=== PATIENT | male | born 1955 | race Caucasian/White ===

== ENCOUNTER 2016-04-26 19:17 | Inpatient (IN) | payer OTHER ==
--- NOTE | ~2016-04-26 | EKG ---
PATIENT: KIET ANDREW UNIT #: [id number] Ventricular Rate: 100 BPM Atrial Rate: 100 BPM P-R Interval: 150 ms QRS Duration: 114 ms Q-T Interval: 350 ms QTC Calculation(Bezet): 451 ms P [place]: 47 degrees Calculated T Hunter: 131 degrees Diagnosis Line: Normal sinus rhythm Diagnosis Line: Left ventricular hypertrophy with repolarization Diagnosis Line: abnormality Diagnosis Line: Abnormal ECG Diagnosis Line: When compared with ECG of 27-APR-2016 07:15, Diagnosis Line: ST no longer elevated in Anterior leads Diagnosis Line: Nonspecific T wave abnormality no longer evident Diagnosis Line: in Inferior leads Diagnosis Line: T wave inversion now evident in Anterior leads Diagnosis Line: Confirmed by FESTUS SALGADO MD ([id number]) on 04/30/2016 Diagnosis Line: 6:15:57 PM INTERPRETING MD: NAOMI MCKEON
--- NOTE | ~2016-04-26 | EKG ---
PATIENT: KIET ANDREW UNIT #: [id number] Ventricular Rate: 102 BPM Atrial Rate: 102 BPM P-R Interval: 130 ms QRS Duration: 98 ms Q-T Interval: 352 ms QTC Calculation(Bezet): 458 ms P [place]: 53 degrees Calculated R [place]: 35 degrees Calculated T [place]: -110 degrees Diagnosis Line: Sinus tachycardia Diagnosis Line: Left ventricular hypertrophy with repolarization Diagnosis Line: abnormality Diagnosis Line: Abnormal ECG Diagnosis Line: No previous ECGs available Diagnosis Line: Confirmed by SHAWN REED MD ([id number]) on Diagnosis Line: 04/27/2016 5:16:32 PM INTERPRETING MD: RADHA
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
--- NOTE | ~2016-04-26 | US77 ---
[facility] A Service of [facility] RADIOLOGY TEXT RESULTS PATIENT: KIET ANDREW LOCATION: [place] [address] : 55 UNIT #: [id number] AGE: [address]: Ricardo Wilburn MD SEX: M ORDER DR: [id number] [place] [id number] [facility]. [place], [place] [address] [id number] I MR#: [id number] Acc #: [id number] NAME: KIET ANDREW : 1955 SEX: M STUDY DATE/TIME: 04/28/2016 8:19 UNIT: [facility] ROOM: [facility] STUDY DESCRIPTION: US Kidney Bilateral Complete Attending Physician: Ricardo Wilburn M.D. Ordering Physician: Franc Andersen M.D. Primary Care Physician: Primary Care Physician No MEDICAL IMAGING REPORT This report is preliminary unless electronic signature is present EXAM Renal ultrasound INDICATIONS Acute renal failure. Chronic kidney disease. BUN 48, creatinine 3.6, GFR 18.5. PROCEDURE Shanks-scale and Doppler imaging of the kidneys and bladder. COMPARISON None FINDINGS Right kidney measures 8.3 cm in length and has increased echotexture. Left kidney measures 7.5 cm has increased echotexture. No hydronephrosis. Unremarkable bladder. IMPRESSION Both kidneys show increased echotexture in keeping with change of chronic renal disease. No hydronephrosis. Dictated by... Yaw Don M.D. THIS IS AN ELECTRONICALLY VERIFIED REPORT Yaw Don M.D. at 04/28/2016 6:39 PM MELYD/esme TD: 04/28/2016 10:42 JOB #: [id number] MEDICAL IMAGING REPORT [facility] A Service of [facility] RADIOLOGY TEXT RESULTS PATIENT: KIET ANDREW LOCATION: [place] [address] : [birth year] UNIT #: [id number] AGE: [address]: Ricardo Wilburn MD SEX: M ORDER DR: COPY
--- NOTE | ~2016-04-26 | CR71 ---
[facility] A Service of [facility] & [facility] RADIOLOGY TEXT RESULTS PATIENT: KIET ANDREW LOCATION: [facility] : [birth year] UNIT #: [id number] AGE: [address]: Ricardo Wilburn MD SEX: M ORDER DR: [id number] [facility] [address] [facility]. [place], [place] [address] [id number] I MR#: [id number] Acc #: [id number] NAME: KIET ANDREW : 1955 SEX: M STUDY DATE/TIME: UNIT: [facility] ROOM: [facility] STUDY DESCRIPTION: CR Chest Single View Attending Physician: Ricardo Wilburn M.D. Ordering Physician: Yuliana Méndez M.D. Primary Care Physician: Primary Care Physician No MEDICAL IMAGING REPORT This report is preliminary unless electronic signature is present EXAM Chest portable 05/01/2016 0949 hours HISTORY Lung mass, post lung biopsy today. Evaluate for pneumothorax. COMPARISON Chest film 04/28/[address] biopsy images 05/01/2016 FINDINGS Portable upright chest demonstrates clear left lung with no left effusion. There is a large mass filling the majority of the right hemithorax similar to prior study. There is no pleural effusion or pneumothorax. Right PICC line tip is in the SVC. IMPRESSION Post biopsy film demonstrates no pneumothorax or significant pleural effusion. Large right lung mass appears unchanged. Dictated by... Pretty Foreman M.D. THIS IS AN ELECTRONICALLY VERIFIED REPORT Pretty Foreman M.D. at 05/01/2016 11:41 AM SMM/charisma TD: 05/01/2016 11:15 JOB #: [id number] MEDICAL IMAGING REPORT COPY
--- NOTE | ~2016-04-26 | CT57 ---
[facility] A Service of [facility] & [facility] RADIOLOGY TEXT RESULTS PATIENT: KIET ANDREW LOCATION: [facility] 554-01 : 55 UNIT #: [id number] AGE: [address]: Yuliana Méndez MD SEX: M ORDER DR: [id number] [facility] [address] [facility]. [place], [place] [address] [id number] I MR#: [id number] Acc #: [id number] NAME: KIET ANDREW : 1955 SEX: M STUDY DATE/TIME: 04/26/2016 21:32 UNIT: [facility] ROOM: [facility] STUDY DESCRIPTION: CT Chest Wo Cont Attending Physician: Yuliana Méndez M.D. Ordering Physician: Aubrey Mares M.D. Primary Care Physician: No Primary Care Physician MEDICAL IMAGING REPORT This report is preliminary unless electronic signature is present EXAM CT chest without contrast. HISTORY Shortness of air and chest pain. Cough for 3 weeks. Lung mass on chest x-ray earlier today. TECHNIQUE CT chest was performed without contrast and is compared to chest x-ray earlier today. This CT exam was performed with one or more of the following radiation dose reduction techniques: automatic exposure control, adjustment of mA and/or kV according to patient size, and iterative reconstruction. FINDINGS There is a large complex solid and cystic mass occupying the right mid chest, corresponding to the large lesion on chest x-ray earlier today, within the right upper lobe with residual partial aeration of the posterior and superior right upper lobe. The mass is contiguous with the right hilum, and extends to the pleural surface laterally and anteriorly and to the mediastinal pleura, and measures 16.5 cm x 10 cm x 14 cm in AP, transverse, and craniocaudal dimensions. There is apparent occlusion of the proximal right upper lobe bronchus, and probable extrinsic compression of the right middle lobe bronchus with nearly complete atelectasis of the right middle lobe. There is probably contiguous right hilar adenopathy. There is right upper mediastinal adenopathy posterior to the upper thoracic esophagus measuring 2.0 cm, and adenopathy anterior to the lower trachea measuring 1.4 cm. 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 There is a small right pleural effusion. The left lung is clear. Incidental calcified left mediastinal and left hilar nodes and small calcified granuloma in the superior segment left lower lobe. STS. [facility] A Service of [facility] & [facility] RADIOLOGY TEXT RESULTS PATIENT: KIET ANDREW LOCATION: [facility] 554-01 : 55 UNIT #: [id number] AGE: [address]: Yuliana Méndez MD SEX: M ORDER DR: Findings in the upper abdomen include incidental bilateral nonobstructing renal stones measuring up to approximately 8 mm in the right kidney. IMPRESSION 1. Large complex solid and cystic mass occupying the majority of the right mid chest with contiguous right hilar adenopathy and moderate mediastinal adenopathy. The mass corresponds to the large lesion in the right lung on chest x-ray earlier today and measures 16.5 cm x 10 cm x 14 cm. This is worrisome for right lung carcinoma, likely arising in the right upper lobe, and less likely arising in the right middle lobe. There is apparent occlusion of the proximal right upper and middle lobe bronchi. 2. Small right pleural effusion. 3. Left lung is clear. 4. Findings in the upper abdomen include incidental bilateral nonobstructing renal stones measuring up to approximately 8 mm in the right kidney. Dictated by... Daniel Key M.D. THIS IS AN ELECTRONICALLY VERIFIED REPORT Daniel Key M.D. at 04/27/2016 11:37 PM DFL/trixie TD: 04/27/2016 08:07 JOB #: [id number] MEDICAL IMAGING REPORT COPY
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
--- NOTE | ~2016-04-26 | EKG ---
PATIENT: KIET ANDREW UNIT #: [id number] Ventricular Rate: 102 BPM Atrial Rate: 102 BPM P-R Interval: 146 ms QRS Duration: 102 ms Q-T Interval: 346 ms QTC Calculation(Bezet): 450 ms P [place]: 67 degrees Calculated R [place]: 19 degrees Calculated T [place]: -132 degrees Diagnosis Line: Sinus tachycardia Diagnosis Line: Left ventricular hypertrophy with repolarization Diagnosis Line: abnormality Diagnosis Line: Abnormal ECG Diagnosis Line: When compared with ECG of 27-APR-2016 02:23, Diagnosis Line: (unconfirmed) Diagnosis Line: No significant change was found Diagnosis Line: Confirmed by SHAWN REED MD ([id number]) on Diagnosis Line: 04/27/2016 5:18:37 PM INTERPRETING MD: RADHA
--- NOTE | ~2016-04-26 | XA166 ---
[facility] A Service of [facility] & [facility] RADIOLOGY TEXT RESULTS PATIENT: KIET ANDREW LOCATION: [address]5 554-01 : 55 UNIT #: [id number] AGE: [address]: Ricardo Wilburn MD SEX: M ORDER DR: [id number] [facility] [address] [facility]. [place], [place] [address] [id number] I MR#: [id number] #: [id number] NAME: KIET ANDREW : 1955 SEX: M STUDY DATE/TIME: 04/28/2016 14:23 UNIT: [facility] ROOM: [facility] STUDY DESCRIPTION: XA PICC Line Placement WO Port Attending Physician: Ricardo Wilburn M.D. Ordering Physician: Ricardo Wilburn M.D. Primary Care Physician: No Primary Care Physician MEDICAL IMAGING REPORT This report is preliminary unless electronic signature is present EXAM Right-sided PICC line placement. INDICATIONS Need for IV access in patient with right lung mass. PRE-PROCEDURE The procedure was explained to the patient and/or patient sales representative groceries including risks, benefits, potential complications and potential for alternative forms of treatment. Informed consent was obtained, and prior to initiating the procedure a formal timeout procedure was performed. PROCEDURE Using full standard sterile barrier technique, including caps, gowns, gloves, masks, as well as sterile skin preparation and standard sterile draping, the right arm was prepped and draped in the usual fashion, and real-time sterile ultrasound guidance was used to localize an arm vein and to confirm vessel patency. A hard copy ultrasound image was recorded. After local anesthesia with 1% Xylocaine, the vein was punctured using real-time sterile ultrasound guidance, and an 0.018 guidewire was advanced into the superior vena cava, using fluoroscopic guidance. A 5 English dual-lumen PICC was then measured and deployed with the tip positioned in the superior vena cava. The position of the line was documented with a radiographic image. The line was secured in place with an adhesive dressing and an antibiotic patch was applied. Total fluoro time was 0.1 minutes. AK was 2 mGy. IMPRESSION Successful placement of a 5 English dual-lumen PowerPICC via the right arm under ultrasound and fluoroscopic guidance. The tip of the PICC is in good position in the superior vena cava. [facility] A Service of [facility] & [facility] RADIOLOGY TEXT RESULTS PATIENT: KITE ANDREW LOCATION: [facility] : [birth year] UNIT #: [id number] AGE: [address]: Ricardo Wilburn MD SEX: M ORDER DR: Dictated by... Eden Diaz M.D. THIS IS AN ELECTRONICALLY VERIFIED REPORT Eden Diaz M.D. at 04/29/2016 4:59 PM AFF/pc TD: 04/29/2016 12:44 JOB #: [id number] MEDICAL IMAGING REPORT COPY
--- NOTE | ~2016-04-26 | A ---
[facility] Nutrition Therapy DATE: 04/28/16 Patient: KIET ANDREW Physician: FILIPPOPRATali Address: [address] [facility] Room/Bed: [address] [place] [address], Zip: [place] [address] Admit Date: 04/26/16 Date of : [birth year] Height: 5 11 Weight: 191 87 NUTRITIONAL ASSESSMENT: REASON: 6 points nutrition screen risk RE: 36# weight los and eating poorly 60 yo male admitted for lung mass, SOB, cough PMH: HTN, GERD, COPD, kidney stones, GERD, EtOH (not drinking x one year) Anthropometrics: Ht: 5'11" Wt: 83.8 kg BMI: 25.8 Labs: K+ 4.8 Gluc 132 BUN 48 Creat 3.6 Ca++ 10.7 GFR 18.5 Meds: Levaquin, protonix Bowel function: last BM 04/26 Skin Integrity: Tattoos scattered Edema: none noted Diet: Heart healthy Assessment: Chart reviewed, events noted. RD spoke with the pt at bedside. Pt reports gradual weight loss over the past couple years. Pt states that he used to weigh 220#, now weighs 184# (36# weight loss). Pt reports that he has decreased appetite and eats less than he used to. Pt states "I eat whatever I want until I'm not hungry anymore". RD provided brief diet education, encouraging adequate nutrient intake with small, frequent meals as needed. Pt agreed, and is agreeable to Ensure BID. Pt's in room reports that she has been limiting their sodium intake. Pt and had no further questions regarding nutrition. Dx: Unintentional weight loss RT decreased appetite AEB pt reported decreased intake and 36# weight loss. Intervention: 1. Regular diet 2. Ensure BID Monitoring, Evaluation and Goals: 1. Oral intake; tolerate >50-75% meals 2. Labs; WNL 3. Weight; prevent unintentional weight loss, maintain weight [facility] Nutrition Therapy DATE: 04/28/16 Patient: KIET ANDREW Physician: CHANEL Address: [address] [facility] Room/Bed: [address] [place] [address], Zip: [place] [address] Admit Date: 04/26/16 Date of : 55 Height: 5 11 Weight: 191 87 Recommendations: 1. Continue current diet. 2. Ensure chocolate BID for supplemental nutrition. Pt is at mild nutritional risk. RD will follow up per protocol. Respectfully, SHARLENE CUMMINGS RD, LD [employer] [facility] [employer] cc: client file
--- NOTE | ~2016-04-26 | XA203 ---
[facility] A Service of [facility] & [facility] RADIOLOGY TEXT RESULTS PATIENT: KIET ANDREW LOCATION: [facility] 554-01 : 55 UNIT #: [id number] AGE: [address]: Ricardo Wilburn MD SEX: M ORDER DR: [id number] [place] [id number] [facility]. [place], [place] [address] [id number] I MR#: [id number] Acc #: [id number] NAME: KIET ANDREW : 1955 SEX: M STUDY DATE/TIME: 04/28/2016 14:18 UNIT: [facility] ROOM: [facility] STUDY DESCRIPTION: XA Thoracentesis Attending Physician: Ricardo Wilburn M.D. Ordering Physician: Nikky Rosenthal M.D. Primary Care Physician: Primary Care Physician No MEDICAL IMAGING REPORT This report is preliminary unless electronic signature is present EXAM Ultrasound-guided right thoracentesis INDICATIONS Right effusion. PROCEDURE The risks, benefits and alternatives to the procedure were explained to the patient, and signed informed consent was obtained. He was seated in the upright position. Preliminary ultrasound of the right hemithorax was performed which demonstrated a small right pleural effusion. This image was permanently saved. The overlying skin was marked. Patient was prepped and draped usual sterile fashion. Time-out was performed as per protocol. Skin and subcutaneous tissues were anesthetized with buffered lidocaine and a Yueh catheter was advanced into the fluid. The aspiration of very clear material. I was only able to aspirate about 10 mL of material. The needle was then removed and manual pressure was applied until hemostasis was obtained. IMPRESSION Technically successful diagnostic right thoracentesis. I was only able to evacuate about 10 mL of very clear material. The patient tolerated the procedure well and no immediate complications. Dictated by... Eden Diaz M.D. THIS IS AN ELECTRONICALLY VERIFIED REPORT Eden Diaz M.D. at 04/29/2016 4:59 PM AFF/to TD: 04/29/2016 12:42 JOB #: [id number] [facility] A Service of [facility] & [facility] RADIOLOGY TEXT RESULTS PATIENT: KIET ANDREW LOCATION: [facility] 554-01 : 55 UNIT #: [id number] AGE: [address]: Ricardo Wilburn MD SEX: M ORDER DR: MEDICAL IMAGING REPORT COPY
--- NOTE | ~2016-04-26 | CR72 ---
[facility] A Service of [facility] & [facility] RADIOLOGY TEXT RESULTS PATIENT: KIET ANDREW LOCATION: [facility] 554-01 : 55 UNIT #: [id number] AGE: [address]: Yuliana Méndez MD SEX: M ORDER DR: [id number] [facility] [address] [facility]. [place], [place] [address] [id number] I MR#: [id number] Acc #: [id number] NAME: KIET ANDREW : 1955 SEX: M STUDY DATE/TIME: 04/26/2016 17:37 [facility] [id number] STUDY DESCRIPTION: CR Chest Single View Portable Attending Physician: Yuliana Méndez M.D. Ordering Physician: Aubrey Mares M.D. Primary Care Physician: Primary Care Physician No MEDICAL IMAGING REPORT This report is preliminary unless electronic signature is present EXAM Portable chest HISTORY Shortness of air and cough, congestion and chest pain and shortness of air for 3 weeks. FINDINGS Large oval density over the right lung could be loculated fluid or pulmonary or pleural mass. This measures close to 18 cm in craniocaudal dimension and nearly 10 cm in transverse dimension. Comparison to prior chest x-rays if available is recommended. This could otherwise be further evaluated with CT chest when clinically appropriate. Cardiac and mediastinal contours are otherwise unremarkable. No focal infiltrates on the left. Dictated by... Daniel Key M.D. THIS IS AN ELECTRONICALLY VERIFIED REPORT Daniel Key M.D. at 04/27/2016 11:33 PM DFL/ines TD: 04/27/2016 02:51 JOB #: [id number] MEDICAL IMAGING REPORT COPY
--- NOTE | ~2016-04-26 | CT134 ---
[facility] A Service of [facility] & [facility] RADIOLOGY TEXT RESULTS PATIENT: KIET ANDREW LOCATION: [facility] 554-01 : 55 UNIT #: [id number] AGE: [address]: Ricardo Wilburn MD SEX: M ORDER DR: [id number] [facility] [address] [facility]. [place], [place] [address] [id number] I MR#: [id number] Acc #: [id number] NAME: KIET ANDREW : 1955 SEX: M STUDY DATE/TIME: 05/01/2016 9:20 UNIT: [facility] ROOM: [facility] STUDY DESCRIPTION: CT Guide Attending Physician: Ricardo Wilburn M.D. Ordering Physician: Yuliana Méndez M.D. Primary Care Physician: No Primary Care Physician MEDICAL IMAGING REPORT This report is preliminary unless electronic signature is present EXAM CT guided lung biopsy. INDICATIONS Right lung mass. TECHNIQUE This CT exam was performed with one or more of the following radiation dose reduction techniques: automatic exposure control, adjustment of mA and/or kV according to patient size, and iterative reconstruction. FINDINGS The risks, benefit and alternatives to the procedure explained to the patient, signed informed consent was obtained. He was placed supine on the CT scanner gantry. Preliminary CT scan was performed through the region of interest. An appropriate site overlying the patient's right upper lobe mass was selected. The overlying skin was marked. Patient is prepped and draped usual sterile fashion. Time-out was performed as per protocol. Skin and subcutaneous tissues were anesthetized with buffered lidocaine. Anesthesia needle was left in place. A CT scan confirmed appropriate trajectory of the needle. I subsequently exchanged for a 17-gauge coaxial needle which was advanced into the mass. Repeat CT scan confirmed appropriate positioning of the needle. At this point, I obtained at 2 cm core sample from the lesion. Patient was noted to have fairly vigorous back bleeding from the biopsy site, so at this point, the procedure was terminated. The needle was removed and manual pressure was applied until hemostasis was obtained. Patient tolerated procedure well. There were no immediate complications. He did receive conscious sedation consisting of 2 mg of Versed and 50 mcg of fentanyl. Continuous monitoring was provided throughout the procedure. [facility] A Service of [facility] & [facility] RADIOLOGY TEXT RESULTS PATIENT: KIET ANDREW LOCATION: [facility] 554-01 : 55 UNIT #: [id number] AGE: [address]: Ricardo Wilburn MD SEX: M ORDER DR: IMPRESSION Technically successful CT guided right lung biopsy as noted above. CT images obtained during the procedure, and permanent images were saved. Dictated by... Eden Diaz M.D. THIS IS AN ELECTRONICALLY VERIFIED REPORT Eden Diaz M.D. at 05/02/2016 8:03 PM AFF/ea TD: 05/01/2016 21:11 JOB #: [id number] MEDICAL IMAGING REPORT COPY
--- NOTE | ~2016-04-26 | DS ---
Unit #: [id number] #: [id number] Patient: KIET ANDREW [id number] [address] [address] [id number] I MR#: [id number] NAME: KIET ANDREW ROOM: 554 Age: 60 Sex: M Admission Date: 04/26/2016 : 1955 Discharge Date: Attending Physician: Ricardo Wilburn M.D. Primary Care Physician: No Primary Care Physician DISCHARGE SUMMARY ADDENDUM HOSPITAL COURSE In the last few days, the patient has elected to be inpatient Hospice. We consulted Hospice team to come and evaluate him. Hospice team evaluated. They spoke with the patient, his spouse and family. I spoke with the patient at length and he wants to go for inpatient Hospice. The works in the night and she says she cannot take care of him at home in the night. channel development manager is working on the disposition needs for the inpatient Hospice. Once he has a bed, we will transfer him to the inpatient Hospice. On the day of the discharge, his physical examination: GENERAL APPEARANCE: The patient is alert, oriented x3, lying in the bed in no acute distress. VITAL SIGNS: Temperature 98. Pulse 77. Respiratory rate 131/80. HEENT: Normocephalic, atraumatic. CHEST: Bilateral equal air entry. Bilateral rhonchi. HEART: S1, S2. Regular rhythm. ABDOMEN: Soft, nontender. EXTREMITIES: No edema. Normal pulses. He will be transferred to inpatient Hospice once he has a bed. His medications will be determined with inpatient Hospice. We are giving him morphine 1 to 2 mg q.2 hours p.r.n. and Ativan 1 mg q.4 p.r.n. Total time spent in his discharge-28 minutes. Dictated by... Ricardo Wilburn M.D. PS/bd TD: 05/06/2016 12:00 JOB #: [id number] Unit #: [id number] #: [id number] Patient: KIET ANDREW DISCHARGE SUMMARY X X DISCHARGE SUMMARY
--- NOTE | ~2016-04-26 | CR71 ---
[facility] A Service of [facility] & [facility] RADIOLOGY TEXT RESULTS PATIENT: KIET ANDREW LOCATION: [facility] 55- : 55 UNIT #: [id number] AGE: [address]: Ricardo Wilburn MD SEX: M ORDER DR: [id number] [facility] [address] [facility]. [place], [place] [address] [id number] I MR#: [id number] Acc #: [id number] NAME: KIET ANDREW : 1955 SEX: M STUDY DATE/TIME: 04/28/2016 15:13 UNIT: [facility] ROOM: [facility] STUDY DESCRIPTION: CR Chest Single View Attending Physician: Ricardo Wilburn M.D. Ordering Physician: Eden Diaz M.D. Primary Care Physician: Primary Care Physician No MEDICAL IMAGING REPORT This report is preliminary unless electronic signature is present EXAM Portable chest radiograph INDICATION Evaluation for pneumothorax following thoracentesis. FINDINGS No pneumothorax is identified post thoracentesis. Patient has undergone placement of a right-sided PICC line which terminates in the superior vena cava. Large right upper lobe mass is again seen. There is probably a trace right pleural effusion. Left lung appears clear. Heart size is within normal limits. Dictated by... Eden Diaz M.D. THIS IS AN ELECTRONICALLY VERIFIED REPORT Eden Diaz M.D. at 04/28/2016 5:12 PM AFF/jw TD: 04/28/2016 16:06 JOB #: [id number] MEDICAL IMAGING REPORT COPY
--- NOTE | ~2016-04-26 | EKG ---
PATIENT: KIET ANDREW UNIT #: [id number] Ventricular Rate: 91 BPM Atrial Rate: 91 BPM P-R Interval: 120 ms QRS Duration: 88 ms Q-T Interval: 346 ms QTC Calculation(Bezet): 425 ms P Rapidan: 32 degrees Calculated R Rapidan: 15 degrees Calculated T Rapidan: -114 degrees Diagnosis Line: Normal sinus rhythm Diagnosis Line: Left ventricular hypertrophy with repolarization Diagnosis Line: abnormality Diagnosis Line: Abnormal ECG Diagnosis Line: No previous ECGs available Diagnosis Line: Confirmed by SHAWN REED MD ([id number]) on Diagnosis Line: 04/27/2016 5:13:32 PM INTERPRETING MD: RADHA
--- NOTE | ~2016-04-26 | CO ---
Unit #: [id number] #: [id number] Patient: KIET ANDREW [id number] [address] [place], [place] [address] [id number] I MR#: [id number] NAME: KIET ANDREW ROOM: 554 Age: 60 Sex: M Admission Date: 04/26/2016 : 1955 Attending Physician: Yuliana Méndez M.D. CONSULTATION REPORT REASON FOR CONSULTATION Lung mass. CHIEF COMPLAINT Shortness of breath. HISTORY OF PRESENT ILLNESS This patient is basically a 60-year-old male who has presented to the emergency room with the complaint of shortness of breath, cough, increasing sputum production, and difficulty breathing. This has been going on for a few weeks. He has not seen a physician in the last many years. He continues to smoke about one pack per day. A chest x-ray showed a significant right side oval density. He has a right-sided lung mass with possible loculated fluid. I am seeing the patient at the bedside. He complains of cough and shortness of breath. REVIEW OF SYSTEMS Positive for pallor. No edema, no cyanosis, no jaundice. The rest is per History of Present Illness. The rest of a 12-point review of systems has been reviewed and is negative. PAST MEDICAL HISTORY 1. Hypertension. 2. Gastroesophageal reflux disease. 3. Kidney stone. 4. Chronic obstructive pulmonary disease. PAST SURGICAL HISTORY 1. Exploratory laparotomy. 2. Left leg surgery. SOCIAL HISTORY One pack smoker per day. MEDICATIONS He takes bdsw-kmp-jguidzk omeprazole. FAMILY HISTORY None as per record. PHYSICAL EXAMINATION VITAL SIGNS: Temperature 98, pulse 87, respirations 12, and blood pressure 180/70. NEUROLOGICAL: Awake, alert, and oriented, with no neurological deficits. Unit #: [id number] #: [id number] Patient: KIET ANDREW HEENT: Pupils equal, round, and reactive to light and accommodation. Extraocular movements are intact. NECK: Supple. No JVD. CHEST: Bilateral air entry, bilateral mild rhonchi. GASTROINTESTINAL: Nontender and soft. Bowel sounds positive. EXTREMITIES: No edema. SKIN: No rashes and no ulcers. LYMPHATICS: No lymphadenopathy. ASSESSMENT 1. Acute exacerbation of chronic obstructive pulmonary disease. 2. Likely postobstructive pneumonia. 3. Lung mass. 4. Loculated pleural effusion. 5. (1) . PLAN Continue patient on IV steroids and IV antibiotic. Get a 2D echo and BNP. Patient will need a CT-guided biopsy and also will need thoracentesis. He may need bronchoscopy after that. Currently, pulmonary status is not stable to do bronchoscopy. We will request Interventional Radiology to do the aspiration under ultrasound guidance and will follow the results for cytology. Please see orders for detailed plans. Thank you very much for this consultation. We will continue to follow along. Dictated by... Nikky Rosenthal M.D. Douglas TD: 04/27/2016 18:53 JOB #: [id number] CONSULTATION REPORT X Nikky Rosenthal MD CONSULTATION REPORT
--- NOTE | ~2016-04-26 | CR71 ---
[facility] A Service of [facility] & [facility] RADIOLOGY TEXT RESULTS PATIENT: KIET ANDREW LOCATION: [facility] : 55 UNIT #: [id number] AGE: [address]: Ricardo Wilburn MD SEX: M ORDER DR: [id number] [facility] [address] [facility]. [place], [place] [address] [id number] I MR#: [id number] Acc #: [id number] NAME: KIET ANDREW : 1955 SEX: M STUDY DATE/TIME: 05/01/2016 12:03 UNIT: [facility] ROOM: [facility] STUDY DESCRIPTION: CR Chest Single View Attending Physician: Ricardo Wilburn M.D. Ordering Physician: Yuliana Méndez M.D. Primary Care Physician: Primary Care Physician No MEDICAL IMAGING REPORT This report is preliminary unless electronic signature is present EXAM Chest portable, 05/01/2016 12:03 hours HISTORY [address]-guided lung biopsy today. Evaluate for pneumothorax. COMPARISON 05/01/2016 09:49 hours FINDINGS Portable upright chest demonstrates stable right PICC line with tip in SVC. Large mass in the right chest is unchanged. There is no pleural effusion or pneumothorax. IMPRESSION Stable large right lung mass. There is no pleural fluid or pneumothorax. Dictated by... Pretty Foreman M.D. THIS IS AN ELECTRONICALLY VERIFIED REPORT Pretty Foreman M.D. at 05/01/2016 2:33 PM Carmen TD: 05/01/2016 14:27 JOB #: [id number] MEDICAL IMAGING REPORT COPY
--- NOTE | ~2016-04-26 | CO ---
Unit #: [id number] #: [id number] Patient: KIET GARCIA [id number] [address] [place], [place] [address] [id number] I MR#: [id number] NAME: KIET GARCIA ROOM: 554 Age: 60 Sex: M Admission Date: 04/26/2016 : 1955 Attending Physician: Ricardo Wilburn M.D. Consultation Date: 04/27/2016 CONSULTATION REPORT CHIEF COMPLAINT Renal failure. REASON FOR CONSULTATION Renal failure. HISTORY OF PRESENT ILLNESS Mr. Garcia is a 60-year-old white male with no recent medical care over the last 4 years. He tells me the last time he had any labs or was seen by any medical practitioner was 4 years ago at [facility]. He cannot recall the details, but stated that he was "very bad kidney failure," but cannot recall if he saw a floorman at that time. Again, no recent labs since that time. His creatinine on admission was 4.0 improved to 3.6 today with IV fluids. He is a long-term smoker, 2 packs per day for "more years that I can remember." He presented with shortness of breath, cough, sputum, difficulty breathing, large lung mass and was found on chest x-ray and further evaluation is pending. MEDICAL HISTORY Significant for hypertension, GERD, kidney stones, and COPD, all of which are untreated. SURGICAL HISTORY Includes a prior exploratory laparotomy and left leg surgery. REVIEW OF SYSTEMS As above. SOCIAL HISTORY Perhaps as high as 100 pack-year history. MEDICATIONS Only twct-fwm-uriruhu omeprazole. Current medications reviewed. FAMILY HISTORY Significant for MEN type 1 syndrome. He is unclear if he has ever been diagnosed with this. PHYSICAL EXAMINATION GENERAL: He is awake, alert, chronically ill appearing, hypertensive, afebrile, no distress. HEENT: Mucous membranes moist. NECK: Supple. CHEST: Bilateral wheezes with rhonchi. Decreased air movement. Unit #: [id number] #: [id number] Patient: KIET GARCIA CARDIOVASCULAR: Regular rate and rhythm. ABDOMEN: Soft, nontender. EXTREMITIES: No edema. SKIN: No rashes. No lymphadenopathy. DIAGNOSTIC STUDIES LABORATORY RESULTS: Pertinent labs have been reviewed as above. ASSESSMENT 1. Acute renal failure versus chronic kidney disease. No records to compare to. We will get a renal ultrasound and urine studies to start workup. 2. Postobstructive pneumonia. 3. Large lung mass, highly suspicious for lung cancer. 4. Hypercalcemia perhaps secondary to malignancy, possibly secondary to squamous cell lung cancer. Await workup per Pulmonary. 5. Anemia of chronic kidney disease. 6. Mild hyperkalemia. PLAN Agree with IV fluids. Check renal ultrasound and urine studies. We will follow renal function while he is here, but this very well could be a chronic process. We have no old labs to compare to. We will await workup per Pulmonary regarding his lung mass, looks like the plan is for right-sided thoracentesis. Dictated by... Niko Andersen M.D. LEWIS/ike TD: 04/28/2016 04:19 JOB #: [id number] CONSULTATION REPORT X NIKO ANDERSEN X CONSULTATION REPORT
--- NOTE | ~2016-04-26 | CO ---
Unit #: [id number] #: [id number] Patient: KIET ANDREW [id number] [address] [place], [place] [address] [id number] I MR#: [id number] NAME: KIET ANDREW ROOM: 554 Age: 60 Sex: M Admission Date: 04/26/2016 : 1955 Attending Physician: Ricardo Wilburn M.D. Consultation Date: 04/27/2016 CONSULTATION REPORT DICTATED FOR Kiet Flanagan M.D. REASON FOR CONSULT Elevated troponin. HISTORY OF PRESENT ILLNESS The patient is a 60-year-old white male, who does not follow with any physicians currently, but has a history of hypertension although he has not taken his medications in the past 2 years due to not having a primary care doctor, tobacco abuse of 1 to 2 packs per day for 45 years and also daily marijuana use for 45 years. The patient presented to the [facility] ED on 04/26/2016 at 4:00 p.m. with complaints of shortness of breath as well as chest pain. The patient states that he has had the shortness of breath that has been worsening over the past 3 weeks, but got significantly worse about 2 days ago. The patient also complains that for the past 2 weeks, he has felt a sensation of pressure in his chest that feels like someone is sitting on his chest and occasionally that pain radiates to his back. The patient also complains of a runny nose and a cough that is productive of white to light green sputum, but no blood as well as getting fatigued with minimal activity. The patient denies any nausea, vomiting, diarrhea, palpitations, syncope, dizziness. The patient also reports that he has had some weight loss over the past month of roughly 20 to 25 pounds. The patient states that he has been eating well, but has had a decreased appetite. On arrival to the ED, the patient's blood pressure was noted to be 182/104, pulse 127, temp 97.3, respirations 28, sats were 100% on room air. The patient has not had any kind of cardiac workup that he can remember as far as a stress test, echo, or cardiac cath. PAST MEDICAL HISTORY 1. Hypertension. 2. Blood clot in his leg in 1995 after surgery. 3. Reflux. PAST SURGICAL HISTORY Includes: 1. Left leg surgery. 2. Exploratory surgery. SOCIAL HISTORY The patient is a smoker of 1 to 2 packs per day for the last 45 years. The patient does not drink daily, but does report very frequent alcohol Unit #: [id number] #: [id number] Patient: KIET ANDREW. The patient does use marijuana daily for the last 45 years. FAMILY HISTORY Mom is still living at age 74. She had some type of a valve surgery. The patient's dad in his 60s, but unknown cause. REVIEW OF SYSTEMS See HPI. PHYSICAL EXAMINATION GENERAL: This is a 60-year-old white male, who is alert, oriented x3, who is visibly short of breath at time. VITAL SIGNS: Blood pressure 128/81, temp 97.4, pulse 103, respirations 16. HEENT: Pupils are equal, round, and reactive. Oral mucosa is moist. NECK: No JVD. No thyromegaly. No lymphadenopathy. No carotid bruits. HEART: S1, S2. No S3, S4. No clicks. No rubs. No murmurs. LUNGS: Rhonchi and diminished. ABDOMEN: Soft. Bowel sounds positive. Nontender. Nondistended. EXTREMITIES: No swelling. NEUROLOGIC: No neuro deficits noted. ALLERGIES Include no known drug allergies. HOME MEDICATIONS Omeprazole 20 mg p.o. daily. DIAGNOSTIC STUDIES LABORATORY RESULTS: White count 9.9, hemoglobin 8, hematocrit 25.4, platelets 342. Sodium 137, potassium 5.4, chloride 111, CO2 of 18, BUN 44, creatinine 3.6, glucose 135. TSH 0.44. Troponin 0.15 then 0.17 and then 0.19. IMAGING STUDIES: Chest x-ray shows a large oval density in the right lung that measures 18 cm x 10 cm. CARDIOVASCULAR STUDIES: EKG shows normal sinus rhythm with a rate of 91 with left ventricular hypertrophy as well as some nonspecific T-wave abnormalities in the lateral leads. IMPRESSION 1. Large lung mass in the right lung versus a fluid collection. 2. Chest pain with indeterminate troponin. 3. Acute kidney injury. 4. Likely chronic obstructive pulmonary disease. 5. Tobacco abuse. 6. Uncontrolled hypertension. 7. Gastroesophageal reflux disease. 8. Anemia. PLAN We will obtain a 2D echo to evaluate LV function and valvular abnormalities. We will trend troponin. Once pulmonary status improves, the patient will likely need an ischemic workup. Depending on troponin trends, would be either cardiac cath or stress test. We will add scheduled hydralazine and nitroglycerin paste. Pulmonary and Renal both consulted and following the patient. We will check a fasting lipid panel Unit #: [id number] #: [id number] Patient: KIET ANDREW as well as a hemoglobin A1c. Further recommendations pending physician's review. Dictated by... CORINE Arce TD: 04/28/2016 03:03 JOB #: [id number] CONSULTATION REPORT X X CONSULTATION REPORT
--- NOTE | ~2016-04-26 | DS ---
Unit #: [id number] #: [id number] Patient: KIET ANDREW [id number] [address] [place], [place] [address] [id number] MR#: [id number] NAME: KIET ANDREW ROOM: 554 Age: 60 Sex: M Admission Date: 04/26/2016 : 1955 Discharge Date: Attending Physician: Ricardo Wilburn M.D. Primary Care Physician: Primary Care Physician No DISCHARGE SUMMARY ADMITTING DIAGNOSES Cough and shortness of breath. FURTHER DIAGNOSES 1. Lung mass, possibly tumor about 15 x 20 x 10 cm. 2. Coronary artery disease. 3. Acute on chronic kidney injury. CONSULTANTS 1. Dr. Rosenthal. 2. Dr. Andersen. 3. Dr. Shah. 4. Dr. Forman. PROCEDURES DONE 1. Status post cardiac cath, triple-vessel coronary artery disease, needs a stent if he wants everything to be done. 2. Lung biopsy, thoracentesis. Lung biopsy report is pending. Path report is pending at this point. HISTORY OF PRESENTING ILLNESS The patient is a 60-year-old man with past medical history of hypertension, COPD, kidney stones, GERD, history of long-term tobacco abuse, alcohol abuse, was not seen physician for long time, presented to the emergency room on 26/04/2016 with chief complaint of cough and shortness of breath. HOSPITAL COURSE In the initial workup, he was noted to have a large right-sided mass and further workup. CT was done, the mass is pretty big as up to 20 x 15 x 10 cm. He had a thoracentesis done for pleural fluid. The patient also had biopsy of the mass. The biopsy report is pending at this point. Oncology was consulted. They had a long conversation with the family and explained that poor prognosis. He had elevated troponins and for further workup here and cardiac cath and he was noted to have a triple-vessel coronary artery disease and may need stent, and stent will be considered based upon the goals of care. He also was noted to have a chronic kidney disease with worsening of the renal failure. Nephrology is following him in the hospital course. At this point, the family was informed about overall poor prognosis. He is currently do not resuscitate. Family requested to see the hospice and Unit #: [id number] #: [id number] Patient: KIET ANDREW hospice was consulted. The patient is thinking about an inpatient hospice at this point, but he did not make any final decisions at this point. Kindly note, a final discharge summary will be dictated by me or my colleagues at the time of actual discharge. For now, his code status is do not resuscitate. Dictated by... Yoselyn Davila/ike TD: 05/05/2016 05:22 JOB #: [id number] DISCHARGE SUMMARY X X DISCHARGE SUMMARY
[2016-04-26 18:43] LABS: BASOPHIL% 0.3 % (0-2.5); DIFF IND NO; EOSINOPHIL# 0.1 X10e3 (0-0.7); EOSINOPHIL% 0.8 % (0.0-7.0); HEMATOCRIT 27.7 % (38.0-50.0); HEMOGLOBIN 8.7 gm/dL (13.0-16.0); LYMPHOCYTE# 1.5 X10e3 (1.0-3.5); LYMPHOCYTE% 13.1 % (17.0-45.0); MEAN CELL VOLUME 96.1 FL (83-96); MEAN CORPUSCULAR HEMOGLOBIN 30.3 PG (28-34); MEAN CORPUSCULAR HGB CONC 31.5 g/dL (30-36); MEAN PLATELET VOLUME 7.1 FL (6.5-11.5); MONOCYTE# 0.9 X10e3 (0-1.0); MONOCYTE% 7.9 % (3.0-12.0); NEUTROPHIL# 8.8 X10e3 (1.5-7.1); NEUTROPHIL% 77.9 % (40-75); PLATELET COUNT 399 X10e3 (140-420); RED BLOOD COUNT 2.88 X10e (3.90-5.60); RED CELL DISTRIBUTION WIDTH 14.8 % (11.0-15.5); WHITE BLOOD COUNT 11.3 X10e3 (4.0-10.5)
[2016-04-26 18:56] LABS: POC - CKMB 6.2 ng/mL (0.0-7.9); POC - TROPONIN 0.15 ng/mL (<=0.05)
[2016-04-26 19:04] LABS: ALBUMIN SERUM 2.7 g/dL (3.5-5.0); BILIRUBIN, DIRECT 0.1 mg/dL (0.0-0.2); BILIRUBIN,INDIRECT 0.4 mg/dL (0.0-0.9); BILIRUBIN,TOTAL 0.5 mg/dL (0.2-2.0); BUN/CREATININE RATIO 10.25; CALCIUM SERUM 11.2 mg/dL (8.4-10.2); GLOM FILT RATE Estimated 16.4 mL/min (>60); PROTEIN TOTAL SERUM 7.3 g/dL (6.0-8.3)
[2016-04-26] MEDS ORDERED: OMEPRAZOLE20 M2 PO (19:20)
[2016-04-27 01:28] LABS: CK TOTAL 24 IU/L (36-174)
[2016-04-27 05:52] LABS: BASOPHIL% 0.1 % (0-2.5); DIFF IND NO; EOSINOPHIL% 0.1 % (0.0-7.0); HEMATOCRIT 25.4 % (38.0-50.0); LYMPHOCYTE# 0.6 X10e3 (1.0-3.5); LYMPHOCYTE% 5.7 % (17.0-45.0); MEAN CORPUSCULAR HEMOGLOBIN 30.9 PG (28-34); MEAN CORPUSCULAR HGB CONC 31.6 g/dL (30-36); MEAN PLATELET VOLUME 6.9 FL (6.5-11.5); MONOCYTE# 0.2 X10e3 (0-1.0); MONOCYTE% 1.6 % (3.0-12.0); NEUTROPHIL# 9.1 X10e3 (1.5-7.1); NEUTROPHIL% 92.5 % (40-75); PLATELET COUNT 342 X10e3 (140-420); WHITE BLOOD COUNT 9.9 X10e3 (4.0-10.5)
[2016-04-27 06:48] LABS: CK TOTAL 26 IU/L (36-174)
[2016-04-27 06:56] LABS: ALBUMIN SERUM 2.3 g/dL (3.5-5.0); BILIRUBIN,TOTAL 0.3 mg/dL (0.2-2.0); BUN/CREATININE RATIO 11.66; BUN/CREATININE RATIO 12.22; CALCIUM SERUM 11.2 mg/dL (8.4-10.2); CALCIUM SERUM 11.3 mg/dL (8.4-10.2); CREATININE SERUM 3.6 mg/dL (0.6-1.4); GLOM FILT RATE Estimated 18.5 mL/min (>60); POTASSIUM 5.3 mmol/L (3.5-5.1); POTASSIUM 5.4 mmol/L (3.5-5.1)
[2016-04-27 10:10] LABS: CHOLESTEROL 121 mg/dL (0-200); HDL CHOLESTEROL 37 mg/dL (29-75); LDL CHOLESTEROL 70 mg/dL (-130); LDL/HDL RATIO 2 RATIO (0-4); TRIGLYCERIDES 70 mg/dL (10-160)
[2016-04-28 01:18] LABS: CREATININE,RANDOM URINE 113 mg/dL; SODIUM URINE RANDOM <10 mmol/L
[2016-04-28 05:47] LABS: HEMATOCRIT 23.9 % (38.0-50.0); HEMOGLOBIN 7.4 gm/dL (13.0-16.0); MEAN CELL VOLUME 96.3 FL (83-96); MEAN CORPUSCULAR HEMOGLOBIN 29.7 PG (28-34); MEAN CORPUSCULAR HGB CONC 30.9 g/dL (30-36); MEAN PLATELET VOLUME 7.1 FL (6.5-11.5); RED BLOOD COUNT 2.49 X10e (3.90-5.60); RED CELL DISTRIBUTION WIDTH 15.1 % (11.0-15.5); WHITE BLOOD COUNT 13.7 X10e3 (4.0-10.5)
[2016-04-28 06:13] LABS: BUN/CREATININE RATIO 13.33; CALCIUM SERUM 10.7 mg/dL (8.4-10.2); CREATININE SERUM 3.6 mg/dL (0.6-1.4); GLOM FILT RATE Estimated 18.5 mL/min (>60); MAGNESIUM 1.1 mg/dL (1.6-3.0); POTASSIUM 4.8 mmol/L (3.5-5.1)
[2016-04-28 12:24] LABS: INR 1.1; PARTIAL THROMBOPLASTIN TIME 26.6 SECONDS (23.5-31.3); PROTHROMBIN TIME (PATIENT) 11.1 SECONDS (9.6-11.5)
[2016-04-28 16:28] LABS: PROTEIN, BODY FLUID 1.7 gm/dL
[2016-04-28 23:58] LABS: URINE APPEARANCE CLEAR; URINE BILIRUBIN NEG (NEG); URINE BLOOD NEG (NEG); URINE COLOR YELLOW; URINE GLUCOSE NEG (NEG); URINE KETONE NEG (NEG); URINE LEUKOCYTE ESTERASE NEG (NEG); URINE NITRATE NEG (NEG); URINE PROTEIN 1+ (NEG); URINE SPECIFIC GRAVITY 1.016 (1.003-1.035); URINE UROBILINOGEN 0.2 MG/DL (NEG)
[2016-04-29 00:01] LABS: URBCS1 AUWI 0-2 /[HPF] (0-2); URINE BACTERIA AUWI NEG (NEGATIVE); URINE SQUAMOUS EPITHELIAL CELL NONE SEEN /[HPF]
[2016-04-29 00:09] LABS: CULTURE INDICATED? NO
[2016-04-29 07:00] LABS: HEMATOCRIT 27.8 % (38.0-50.0); HEMOGLOBIN 8.8 gm/dL (13.0-16.0); LYMPHOCYTE# 0.3 X10e3 (1.0-3.5); LYMPHOCYTE% 2.6 % (17.0-45.0); MEAN CELL VOLUME 94.4 FL (83-96); MEAN CORPUSCULAR HEMOGLOBIN 29.8 PG (28-34); MEAN CORPUSCULAR HGB CONC 31.5 g/dL (30-36); MEAN PLATELET VOLUME 7.1 FL (6.5-11.5); MONOCYTE# 0.5 X10e3 (0-1.0); NEUTROPHIL# 11.7 X10e3 (1.5-7.1); NEUTROPHIL% 93.4 % (40-75); PLATELET COUNT 337 X10e3 (140-420); RED BLOOD COUNT 2.95 X10e (3.90-5.60); RED CELL DISTRIBUTION WIDTH 16.4 % (11.0-15.5); WHITE BLOOD COUNT 12.5 X10e3 (4.0-10.5)
[2016-04-29 07:01] LABS: DIFF IND YES
[2016-04-29 07:20] LABS: ANISOCYTOSIS SL; NUCLEATED RED BLOOD CELL 1 /100 (0); PLATELET ESTIMATE NORMAL (NORMAL)
[2016-04-29 07:30] LABS: BUN/CREATININE RATIO 16.11; CALCIUM SERUM 12.4 mg/dL (8.4-10.2); CREATININE SERUM 3.6 mg/dL (0.6-1.4); GLOM FILT RATE Estimated 18.5 mL/min (>60); POTASSIUM 5.3 mmol/L (3.5-5.1)
[2016-04-29 08:16] LABS: FOLATE (FOLIC ACID) 4.7 ng/mL (>5.8)
[2016-04-30 05:13] LABS: HEMATOCRIT 29.2 % (38.0-50.0); HEMOGLOBIN 9.2 gm/dL (13.0-16.0); MEAN CELL VOLUME 94.4 FL (83-96); MEAN CORPUSCULAR HEMOGLOBIN 29.8 PG (28-34); MEAN CORPUSCULAR HGB CONC 31.6 g/dL (30-36); MEAN PLATELET VOLUME 6.9 FL (6.5-11.5); RED BLOOD COUNT 3.09 X10e (3.90-5.60); RED CELL DISTRIBUTION WIDTH 16.2 % (11.0-15.5); WHITE BLOOD COUNT 12.5 X10e3 (4.0-10.5)
[2016-04-30 05:31] LABS: PARTIAL THROMBOPLASTIN TIME 24.5 SECONDS (23.5-31.3)
[2016-04-30 06:06] LABS: BUN/CREATININE RATIO 18.42; CALCIUM SERUM 13.1 mg/dL (8.4-10.2); CREATININE SERUM 3.8 mg/dL (0.6-1.4); GLOM FILT RATE Estimated 17.4 mL/min (>60); MAGNESIUM 1.9 mg/dL (1.6-3.0); PHOSPHOROUS 7.6 mg/dL (2.5-4.6)
[2016-04-30 11:51] LABS: U PROTIEN QUANT CALCULATION 0.87 GM/24H (0.10-0.15)
[2016-04-30 13:26] LABS: URINE CREATININE 45.1 mg/dL
[2016-04-30 13:28] LABS: URINE 24 HOUR CREATININE CALC 0.6 G/24HR (0.7-2.0)
[2016-05-01 06:53] LABS: HEMATOCRIT 29.7 % (38.0-50.0); HEMOGLOBIN 9.6 gm/dL (13.0-16.0); MEAN CELL VOLUME 94.7 FL (83-96); MEAN CORPUSCULAR HEMOGLOBIN 30.7 PG (28-34); MEAN CORPUSCULAR HGB CONC 32.4 g/dL (30-36); RED BLOOD COUNT 3.13 X10e (3.90-5.60); RED CELL DISTRIBUTION WIDTH 16.1 % (11.0-15.5)
[2016-05-01 07:18] LABS: BUN/CREATININE RATIO 24.21; CALCIUM SERUM 12.5 mg/dL (8.4-10.2); CREATININE SERUM 3.8 mg/dL (0.6-1.4); GLOM FILT RATE Estimated 17.4 mL/min (>60); POTASSIUM 5.1 mmol/L (3.5-5.1)
[2016-05-02 06:13] LABS: HEMATOCRIT 27.7 % (38.0-50.0); HEMOGLOBIN 8.8 gm/dL (13.0-16.0); MEAN CELL VOLUME 94.9 FL (83-96); MEAN CORPUSCULAR HEMOGLOBIN 30.3 PG (28-34); MEAN CORPUSCULAR HGB CONC 31.9 g/dL (30-36); MEAN PLATELET VOLUME 7.5 FL (6.5-11.5); RED BLOOD COUNT 2.92 X10e (3.90-5.60); RED CELL DISTRIBUTION WIDTH 15.9 % (11.0-15.5)
[2016-05-02 06:50] LABS: BUN/CREATININE RATIO 26.48; CREATININE SERUM 3.7 mg/dL (0.6-1.4); GLOM FILT RATE Estimated 17.9 mL/min (>60); MAGNESIUM 1.8 mg/dL (1.6-3.0); PHOSPHOROUS 7.1 mg/dL (2.5-4.6)
[2016-05-03 05:30] LABS: HEMATOCRIT 28.1 % (38.0-50.0); HEMOGLOBIN 9.1 gm/dL (13.0-16.0); MEAN CELL VOLUME 94.4 FL (83-96); MEAN CORPUSCULAR HEMOGLOBIN 30.5 PG (28-34); MEAN CORPUSCULAR HGB CONC 32.4 g/dL (30-36); MEAN PLATELET VOLUME 7.5 FL (6.5-11.5); RED BLOOD COUNT 2.98 X10e (3.90-5.60); RED CELL DISTRIBUTION WIDTH 15.9 % (11.0-15.5)
[2016-05-03 05:54] LABS: BUN/CREATININE RATIO 27.56; CALCIUM SERUM 10.9 mg/dL (8.4-10.2); CREATININE SERUM 3.7 mg/dL (0.6-1.4); GLOM FILT RATE Estimated 17.9 mL/min (>60); POTASSIUM 4.5 mmol/L (3.5-5.1)
[2016-05-03 17:58] LABS: PROTEIN/CREAT RATIO (UPE) 1301 (<=84); UPE ALPHA 1 3 % (()); UPE ALPHA 2 12 % (()); UPE BETA 11 % (()); UPE GAMMA 19 % (()); UPEALB (PNL) 55 % (()); UPETP24 (PNL) 915 mg/24 h (<150); UPETV (PNL) 1500 mL (())
[2016-05-04 06:24] LABS: BUN/CREATININE RATIO 29.14; CALCIUM SERUM 10.5 mg/dL (8.4-10.2); CREATININE SERUM 3.5 mg/dL (0.6-1.4); GLOM FILT RATE Estimated 19.1 mL/min (>60); POTASSIUM 4.4 mmol/L (3.5-5.1)
[2016-05-05 15:36] LABS: CALCIUM (PTHINTACT) 12.3 mg/dL (8.6-10.3)
[2016-05-07 08:28] LABS: CALCIUM (PTHINTACT) 12.9 mg/dL (8.6-10.3)
== END 2016-05-06 21:12 | DRG 180 ==
LOC: CED 19:17 → CEDOF 20:00 → C5B 04-27 02:53
PROVIDERS: Emergency Medicine; Family Medicine; Internal Medicine; Internal Medicine Cardiovascular Disease; Internal Medicine Nephrology; Nurse Practitioner; Radiology Diagnostic Radiology
PROC: 0W993ZX Drainage of Right Pleural Cavity, Percutaneous Approach, Diagnostic (ICD-10-PCS; 2016-04-28)
PROC: 02HV33Z Insertion of Infusion Device into Superior Vena Cava, Percutaneous Approach (ICD-10-PCS; 2016-04-28)
PROC: B518YZA Fluoroscopy of Superior Vena Cava using Other Contrast, Guidance (ICD-10-PCS; 2016-04-28)
PROC: B548ZZA Ultrasonography of Superior Vena Cava, Guidance (ICD-10-PCS; 2016-04-28)
PROC: 30233N1 Transfusion of Nonautologous Red Blood Cells into Peripheral Vein, Percutaneous Approach (ICD-10-PCS; 2016-04-28)
PROC: 4A023N7 Measurement of Cardiac Sampling and Pressure, Left Heart, Percutaneous Approach (ICD-10-PCS; principal; 2016-04-30)
PROC: B211YZZ Fluoroscopy of Multiple Coronary Arteries using Other Contrast (ICD-10-PCS; 2016-04-30)
PROC: 0BBC3ZX Excision of Right Upper Lung Lobe, Percutaneous Approach, Diagnostic (ICD-10-PCS; 2016-05-01)
DX: C34.91 Malignant neoplasm of unspecified part of right bronchus or lung (principal); I21.29 ST elevation (STEMI) myocardial infarction involving other sites; J96.01 Acute respiratory failure with hypoxia; I50.21 Acute systolic (congestive) heart failure; J18.9 Pneumonia, unspecified organism; E87.2 Acidosis; I13.0 Hypertensive heart and chronic kidney disease with heart failure and stage 1 through stage 4 chronic kidney disease, or unspecified chronic kidney disease; J90 Pleural effusion, not elsewhere classified; N17.9 Acute kidney failure, unspecified; N18.4 Chronic kidney disease, stage 4 (severe); J44.1 Chronic obstructive pulmonary disease with (acute) exacerbation; E83.52 Hypercalcemia; Z91.14 Patient's other noncompliance with medication regimen; K21.9 Gastro-esophageal reflux disease without esophagitis; Z87.442 Personal history of urinary calculi; D63.1 Anemia in chronic kidney disease; R59.1 Generalized enlarged lymph nodes; I25.10 Atherosclerotic heart disease of native coronary artery without angina pectoris; F17.210 Nicotine dependence, cigarettes, uncomplicated; I25.5 Ischemic cardiomyopathy
CPT/HCPCS: 36415; 71010; 71250; 76770; 76937; 77001; 77012; 80048; 80053; 80061; 80076; 80202; 81003; 82306; 82310; 82330; 82436; 82550; 82553; 82570; 82607; 82652; 82728; 82746; 83036; 83519; 83540; 83550; 83615; 83735; 83880; 83970; 83986; 84100; 84156; 84157; 84165; 84300; 84443; 84484; 85025; 85027; 85610; 85730; 86704; 86850; 86900; 86901; 86923; 87040; 87070; 87205; 88108; 88305; 88341; 88342; 93005; 93306; 94640; 94760; 96374; 96375; 99285; C1751; C1769; C1887; C1894; J0360; J0630; J0885; J1250; J1644; J1650; J1940; J1956; J2060; J2250; J2270; J2405; J2930; J3010; J3370; J3475; J3489; J7060; P9016